=== PATIENT | male | born 1935 | race Caucasian/White ===

== ENCOUNTER 2017-06-20 08:53 | Outpatient (CLI) | payer MEDICARE ==
[2017-06-20 10:41] LABS: Bilirubin Negative (Negative); Blood, Urine Negative (Negative); Glucose, Urine (Dipstick) Negative (Negative); Ketone, Urine Negative (Negative); Nitrite Negative (Negative); Protein, Urine (Dipstick) Negative (Neg-Trace)
[2017-06-20 10:43] LABS: Bacteria/HPF None Seen HPF (None Seen); Hyaline Casts/LPF 0-3 HYALINE CAST LPF (0-3 Hyaline); RBC/HPF 0-3 HPF (0-3); Squamous Epithelial None Seen HPF (0-3); WBC/HPF 0-3 HPF (0-3)
[2017-06-20 11:04] LABS: Anion Gap 14 mmol/L (10-20); BUN (Urea Nitrogen) 16 mg/dL (8.4-25.7); Calc. Creatinine Clearance 0 mL/min (70-130); Calcium 9.3 mg/dL (7.8-10.44); Carbon Dioxide 28 mmol/L (23-31); Chloride 107 mmol/L (98-107); Estimated GFR-MDRD 83
--- NOTE | 2017-06-20 12:24 | CT ---
EXAM: ABDOMEN CT WITH AND WITHOUT CONTRAST PELVIC CT WITH AND WITHOUT CONTRAST: HISTORY: Hematuria. Leaking bladder. COMPARISON: 09/14/15. TECHNIQUE: Abdomen and pelvic CT is performed with and without IV contrast. Coronal reformatted images are sub mitted for interpretation. FINDINGS: ABDOMEN CT: Chronic change of the lung bases. Heart size is normal. No significant pericardial fluid. Descend ing thoracic aorta and abdominal aorta have a normal caliber. No periaortic fat stranding. 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 No periaortic fat stranding. Symmetric attenuation of the psoas muscles. No gastrohepatic, retrocrural, or periportal lymphadenopathy. No mesenteric mass, lymphadenopathy, free air, or free fluid. Gallbladder is unremarkable. Liver, spleen, pancreas, and adrenal glands have appropriate enhancement. Limited evaluation of the alimentary canal due to the lack of oral contrast. No evidence of bowel o bstruction. Note, the cecum appear to be in the left hemiabdomen. The ileocecal junction is normal . Normal-caliber appendix. Fecal material in a nondistended, nondilated colon. Occasional diverti culum. No diverticulitis. There are nonobstructing calcifications in the left and right renal pelvis measuring 4 mm bilaterall y. There is no evidence of hydronephrosis or perinephric fat stranding. No hydroureter, periureter al fat stranding, or ureterolithiasis. Symmetric enhancement of the kidneys. Hypodensity in the ri ght renal cortex may represent an area of focal scarring with associated cortical thinning. There i s symmetric excretion into the intrarenal collecting systems. No filling defect. Symmetric excreti on into the extrarenal collecting system, without filling defect. PELVIC CT: Mass effect upon the floor of the urinary bladder due to prostatic hypertrophic. There is contrast in the dependent portion of the urinary bladder. There are 2 punctate 2 mm calcifications in the de pendent portion of the bladder. No pelvic mass, lymphadenopathy, free air, or free fluid. There are no lytic or blastic lesions in the osseous structures. IMPRESSION: 1. Bilateral nonobstructing renal calculi. 2. Bilaterally, no evidence of obstructive uropathy. 3. Mass effect upon the floor of the urinary bladder secondary to prostatic hypertrophy. An obviou s bladder mass is not appreciated. If there is concern, consider cystoscopy. 4. Two punctate calcifications in the floor of the urinary bladder measuring approximately 2 mm. POS: DAX
[2017-06-20] MEDS ORDERED: Iopamidol 370 76% 100 ML VIAL ONE (15:44)
== END 2017-06-20 08:54 | disposition home or self-care (01) ==
LOC: CT 08:53
PROVIDERS: ATTEND Urology
DX: R31.29 Other microscopic hematuria (principal); N20.0 Calculus of kidney
CPT/HCPCS: 36415; 74178; 80048; 81001; 87086

== ENCOUNTER 2017-07-22 09:58 | Outpatient (CLI) | payer MEDICARE ==
[2017-07-22 10:54] LABS: Hematocrit 40.5 % (42.0-52.0); Mean Platelet Volume 8.1 fL (7.4-10.4); Red Blood Cell (RBC) Count 4.07 mill/uL (4.70-6.10)
[2017-07-22 10:56] LABS: Bilirubin Negative (Negative); Blood, Urine Negative (Negative); Glucose, Urine (Dipstick) Negative (Negative); Ketone, Urine Negative (Negative); Nitrite Negative (Negative); Protein, Urine (Dipstick) Negative (Neg-Trace)
[2017-07-22 11:04] LABS: Bacteria/HPF None Seen HPF (None Seen); Hyaline Casts/LPF 0-3 HYALINE CAST LPF (0-3 Hyaline); PTT 32.4 SEC (22.9-36.1); Prothrombin Time 15.7 SEC (12.0-14.7); RBC/HPF 0-3 HPF (0-3); Squamous Epithelial None Seen HPF (0-3); WBC/HPF 0-3 HPF (0-3)
[2017-07-22 12:02] LABS: Anion Gap 8 mmol/L (10-20); BUN (Urea Nitrogen) 15 mg/dL (8.4-25.7); Calc. Creatinine Clearance 0 mL/min (70-130); Calcium 9.5 mg/dL (7.8-10.44); Carbon Dioxide 32 mmol/L (23-31); Chloride 105 mmol/L (98-107); Estimated GFR-MDRD 80
== END 2017-07-22 09:59 | disposition home or self-care (01) ==
LOC: LABBT 09:58
PROVIDERS: ATTEND Urology
DX: Z01.818 Encounter for other preprocedural examination (principal)
CPT/HCPCS: 80048; 81001; 85027; 85610; 85730; 86850; 86900; 86901; 87086; 93005; 93010

== ENCOUNTER 2017-07-28 06:22 | Observation (INO) | payer MEDICARE ==
[2017-07-22 10:39] VITALS: BMI 26.6
[2017-07-28] MEDS ORDERED: Levofloxacin 500 mg/D5W 100 ml Premix Bag ONE (06:47)
[2017-07-28] MEDS ORDERED: Fentanyl 100 MCG/2 ML VIAL ONE ×2 (06:50→12:22)
[2017-07-28] MEDS ORDERED: Promethazine HCl 25 MG/ML VIAL SLOW IVP PRN ×2 (09:48→15:25)
[2017-07-28] MEDS ORDERED: Ondansetron HCl/PF 4 MG/2 ML Vial IVP PRN (09:48)
[2017-07-28] MEDS ORDERED: Ketorolac Tromethamine 30 MG/ML VIAL IVP PRN (10:34)
[2017-07-28] MEDS ORDERED: diphenhydrAMINE 25 MG CAP PO PRN (10:58)
[2017-07-28] MEDS ORDERED: Oxybutynin 5 MG TAB PO PRN (10:58)
[2017-07-28] MEDS ORDERED: HYDROcodone/Acetaminophen 5/325 mg Tablet PO PRN (10:58)
[2017-07-28] MEDS ORDERED: Mag-Al 1200 mg/1200 mg/30 ML UDCUP PO PRN (10:58)
[2017-07-28] MEDS ORDERED: Dextrose 5% in Water 1,000 ML IV PRN (10:58)
[2017-07-28] MEDS ORDERED: Hyoscyamine Sulfate SL 0.125 mg Tablet SL PRN (10:58)
[2017-07-28] MEDS ORDERED: HumaLOG 300 UNITS/3 ML VIAL SC PRN (10:58)
[2017-07-28] MEDS ORDERED: Dextrose 50% Abboject 50 ML SYRINGE SLOW IVP PRN (10:58)
[2017-07-28] MEDS ORDERED: Morphine 4 MG/ML VIAL SLOW IVP PRN ×2 (11:45)
[2017-07-28] MEDS: hydrALAZINE 20 MG/ML VIAL SLOW IVP PRN (13:50)
--- NOTE | 2017-07-28 14:35 | OP ---
DATE OF PROCEDURE: 07/28/2017 SURGEON: Urology. PREOPERATIVE DIAGNOSIS: Benign prostatic hypertrophy. POSTOPERATIVE DIAGNOSIS: Benign prostatic hypertrophy. PROCEDURE PERFORMED: Transurethral resection of the prostate. INDICATIONS FOR PROCEDURE: Mr. Herron is an 82-year-old white male who presented with BPH and low er urinary tract symptoms with urgency and urge incontinence. Cystoscopy demonstrates a ball-valving median lobe with significant obstruction and his uroflow confirms that he still has a weak stream. We discussed resection of the prostate with the possibility of improvement of his overactive bladder as well. All risks and benefits have been discussed and he has agreed to proceed forward. DESCRIPTION OF PROCEDURE: After identification of armband and verification of consent, patient was b rought back to the operating room where he underwent general anesthesia with an LMA. He was then nicholas george in dorsal lithotomy position, prepped and draped in usual sterile fashion. After appropriate annabelle eout, lubricated 22-Sudanese rigid cystoscope was introduced per urethra into the bladder. Attention w as turned to the ureteral orifice, which could not be identified as they were underneath the median l obe. The visual obturator was switched out for the bipolar resectoscope with the prostate loop. The median lobe was carefully resected down and reinspection at the bladder neck demonstrated both urete ral orifices in close proximity to the bladder neck. The bladder neck was taken down on both sides a nd the resection of the adenomatous prostate resected completely circumferentially all the way to the verumontanum. Care was taken not to pass the verumontanum to avoid sphincteric injury. The prostat e chips were then evacuated using [facility] evacuator. Meticulous hemostasis was performed with the bipo lar prostate loop. There was a small undermined of the bladder on the right bladder neck where the T Y BN had gone through the prostatic capsule was extremely mild and felt it was not significant enough to warrant any kind of further treatment. Both ureters were reinspected and found to be in their or thotopic location unharmed and did not appear to be any type of injury satisfied that all the prostat e chips had been removed. Repeat hemostasis was performed and once completed, the cystoscope was use d to guide in a guidewire into the bladder. The cystoscope was then removed leaving the guidewire in place. A 22-Sudanese three-way Hector catheter with a Councill tip was inserted over the guidewire int o the bladder with ease. The guidewire was then removed and 30 mL of sterile water placed into the b alloon. The catheter was irrigated and found to have minimal clots. The CBI was initiated and the p atient was then awakened and taken to PACU for recovery in stable condition. COMPLICATIONS: None. ESTIMATED BLOOD LOSS: Minimal. RETAINED TUBES AND DRAINS: A 22-Sudanese three-way Hector catheter. SPECIMENS: Prostate chips. DISPOSITION: The patient will be kept in the hospital under observation for CBI. We will probably s end him home with his catheter due to the minor capsulotomy and plan for a voiding trial in approxima tely a week or so.
[2017-07-28] MEDS: HYDROcodone/Acetaminophen 5/325 mg Tablet PO PRN ×2 (14:50→23:07)
[2017-07-28] MEDS ORDERED: Glycopyrrolate 0.2 MG/ML 5 ML SYRINGE ONE (16:32)
[2017-07-28] MEDS ORDERED: PROPOFOL 200 MG/20 ML VIAL ONE (16:32)
[2017-07-28] MEDS ORDERED: PHENYLEPHRINE-NS 100 MCG/ML 10 ML SYRINGE ONE (16:32)
[2017-07-28] MEDS ORDERED: Metoclopramide HCl 10 MG/2 ML VIAL ONE (16:32)
[2017-07-28] MEDS ORDERED: ePHEDrine/0.9% NaCl/PF SYRINGE 50 mg/10 ml ONE (16:32)
[2017-07-28] MEDS ORDERED: Lidocaine 1% PF 5 ML VIAL ONE (16:32)
[2017-07-28] MEDS ORDERED: Ondansetron HCl/PF 4 MG/2 ML Vial ONE (16:32)
[2017-07-28] MEDS: Docusate 100 MG CAP PO SCH (20:54)
[2017-07-28] MEDS: metFORMIN 500 MG TAB PO SCH (20:56)
[2017-07-28] MEDS ORDERED: Amlodipine 5 MG TAB PO SCH (21:00)
[2017-07-28] MEDS ORDERED: glipiZIDE 5 MG TAB PO SCH (21:00)
[2017-07-28] MEDS ORDERED: Melatonin 3 MG TAB PO SCH (21:00)
[2017-07-28] MEDS ORDERED: Atorvastatin Calcium 20 MG TAB PO SCH (21:00)
[2017-07-28 21:05] LABS: Anion Gap 10 mmol/L (10-20); BUN (Urea Nitrogen) 13 mg/dL (8.4-25.7); Calc. Creatinine Clearance 81 mL/min (70-130); Calcium 8.5 mg/dL (7.8-10.44); Carbon Dioxide 28 mmol/L (23-31); Chloride 105 mmol/L (98-107); Estimated GFR-MDRD Greater than 90; Glucose 202 mg/dL (83-110); Magnesium 1.6 mg/dL (1.6-2.6); Potassium 3.9 mmol/L (3.5-5.1); Sodium 139 mmol/L (136-145)
[2017-07-28 21:12] LABS: CKMB 1.8 ng/mL (0-6.6); Troponin I Less than 0.010 ng/mL (< 0.028)
--- NOTE | 2017-07-28 21:28 | CON ---
INITIAL INPATIENT CONSULT NOTE DATE OF CONSULTATION: 07/28/2017 TIME OF SERVICE: 1640. REQUESTING PHYSICIAN: Dr. Javan Garza. REASON FOR CONSULTATION: EKG changes, postop TURP. PRIMARY CARE PHYSICIAN: Dr. Debby Patrick. HISTORY OF PRESENT ILLNESS: Mr. Herron is a pleasant 82-year-old gentleman with history of BPH an d prostate enlargement causing a mass effect on the bladder, who is now postop day #0 today from cyst oscopy and TURP. No noted intraoperative complications, preoperative workup with EKG showed sinus bradycardia; however , on arrival to the floor postoperatively, he had underlying sinus rhythm with PVCs. Due to the EKG changes, we are consulted for evaluation. The patient denies any chest pain or shortness of breath, no nausea or vomiting, no diarrhea or constipation. No fevers or chills. No cough or sputum product ion. In talking with he and his , his states that they see Dr. Coyne regularly. On previous e valuations, he has had an irregular rhythm, which was not been concerned about, and that at their flori e blood pressure cuff, it frequently alerts them to irregular heart rate. Preoperative labs were reviewed and showed normal chemistries. No other current complaints. PAST MEDICAL HISTORY: 1. Hypertension. 2. Hyperlipidemia. 3. Diabetes mellitus type 2. 4. BPH. PAST SURGICAL HISTORY: Include; 1. TURP today. 2. Thumb amputation repair in 1953. 3. Hemorrhoidectomy in the past. HOME MEDICATIONS: 1. Amlodipine 2.5 mg p.o. daily, did not take today. 2. Aspirin 81 mg, off for the last week. 3. Proscar 5 mg p.o. at bedtime. 4. Glipizide 2.5 mg p.o. q.p.m., did not take today. 5. Lisinopril 40 mg p.o. q.a.m., did not take today. 6. Melatonin 5 mg p.o. at bedtime p.r.n. insomnia. 7. Metformin 500 mg p.o. b.i.d., did not take today. 8. Zocor 40 mg p.o. at bedtime. 9. Terazosin 5 mg p.o. at bedtime. 10. CoQ10 100 mg p.o. q.a.m. ALLERGIES: VACCINE and TETANUS TOXOID many, many years ago, has not been rechallenged. This was cristofer e time when he had his thigh amputation surgery in 1952. FAMILY HISTORY: Significant for "heart problems." His dad had an NV in his 60s. His brother had a heart attack at age 55. SOCIAL HISTORY: Negative for habits x3. He did smoke 1 pack per day for 30 years, but quit some 30 years ago. He is . His accompanies him. REVIEW OF SYSTEMS: A 10-point review of systems was performed, negative for all other systems except for stated as per HPI. PHYSICAL EXAMINATION: VITAL SIGNS: Temperature is 97.3, pulse 67, blood pressure 148/72, respiratory rate 14 and satting 9 6% on room air. GENERAL: He is awake. He is alert. He is oriented x3, appears to be in no acute distress. In talk ing with him, he does have some word finding difficulties. HEENT: Normocephalic and atraumatic. Pupils are equal and reactive bilaterally. Mucous membranes a re moist. There are no visible lesions. No thrush. NECK: Supple, with no lymphadenopathy, no JVD, no thyromegaly, no carotid upstroke. There are no br uits. LUNGS: Clear to auscultation bilaterally. There are no wheezes, no rales, no rhonchi. No prolonged expiratory phase. He has good air movement and symmetrical chest excursion. CARDIOVASCULAR: He has underlying regular rhythm with frequent ectopic beats. He has no audible mur murs. ABDOMEN: Soft. It is nontender and nondistended. No masses, no organomegaly. GENITOURINARY: Shows a 3-way Hector catheter in place with a CBI going. EXTREMITIES: Showed no cyanosis, no clubbing. Trace pedal edema. SKIN: Warm, moist and well perfused. He has no other rashes or lesions. MUSCULOSKELETAL: Shows large joints to be intact, normal to inspection. He has no inflammation, no palpable effusions. NEUROLOGIC: Cranial nerves II-XII are grossly intact. He has no focal deficits. He has 5/5 strengt h in all of his extremities. He does have some word finding difficulty, but his speech appears other hayes appropriate. LABORATORY DATA: CMP on 07/25 is normal. Creatinine 0.91, potassium 4.3, calcium of 9.5 and glucose of 133. Hemoglobin A1c was 6.5. INR was 1.2. Urinalysis negative. CBC on 07/22 showed a white co unt of 8.0, hemoglobin 13.4, hematocrit of 40.5 and platelets of 159,000. IMAGING DATA: X-ray on 06/20/2017, CT scan of the abdomen and pelvis showed bilateral nonobstructing renal stones, BPH with mass effect on the bladder. EKG shows sinus rhythm with frequent PVCs. I patton ve no older one to compare too. EKG pre-admit showed sinus bradycardia. ASSESSMENT AND PLAN: 1. Changes in EKG: From history, this sounds like this is likely the patient's baseline. We will follow his EKG with repeat in the morning. We will get serial cardiac biomarkers. I will check chem istries now. The patient remains asymptomatic overnight and has unchanged EKG in the morning. We wi ll likely sign off. If there is any abnormality or question, we will ask Dr. Coyne to evaluate an d comment. 2. Hypertension. Continue home medications. 3. Hyperlipidemia, on Zocor, continue. 4. Diabetes mellitus type 2. Resume home medications. We will use insulin sliding scale. Seems to have reasonably good control with a hemoglobin A1c of 6.5. 5. BPH, status post TURP: Per Dr. Garza. Thank you very much for this consult. We will follow along with you.
[2017-07-29 06:21] LABS: #Eosinphils 0.6 thou/uL (0.0-0.7); #Lymphocytes 1.4 thou/uL (1.20-3.40); #Monocytes 0.8 thou/uL (0.11-0.59); #Neutrophils 4.7 thou/uL (1.40-6.50); %Basophils 0.4 % (0.0-1.0); %Eosinophils 8.1 % (0.0-10.0); %Lymphocytes 18.8 % (21.0-51.0); %Monocytes 10.2 % (0.0-10.0); %Neutrophils 62.6 % (42.0-75.0); Hemoglobin 12.1 g/dL (14.0-18.0); Mean Corpuscular HGB CONC 31.9 g/dL (32.0-36.0); Mean Corpuscular Hemoglobin 31.6 pg (27.0-31.0); Mean Corpuscular Volume 98.9 fl (80.0-94.0); Mean Platelet Volume 8.2 fL (7.4-10.4); Platelet Count 159 thou/uL (130-400); RBC Distribution Width 12.6 % (11.5-14.5); Red Blood Cell (RBC) Count 3.84 mill/uL (4.70-6.10); White Blood Cell (WBC) Count 7.6 thou/uL (4.8-10.8)
[2017-07-29 06:41] LABS: Troponin I Less than 0.010 ng/mL (< 0.028)
[2017-07-29 06:43] LABS: Anion Gap 9 mmol/L (10-20); BUN (Urea Nitrogen) 12 mg/dL (8.4-25.7); Calc. Creatinine Clearance 80 mL/min (70-130); Calcium 8.9 mg/dL (7.8-10.44); Carbon Dioxide 29 mmol/L (23-31); Chloride 108 mmol/L (98-107); Estimated GFR-MDRD 90; Glucose 89 mg/dL (83-110); Magnesium 1.9 mg/dL (1.6-2.6); Potassium 3.6 mmol/L (3.5-5.1); Sodium 142 mmol/L (136-145)
[2017-07-29] MEDS: Docusate 100 MG CAP PO SCH (08:00)
[2017-07-29] MEDS: metFORMIN 500 MG TAB PO SCH (08:00)
[2017-07-29] MEDS ORDERED: Lisinopril 20 MG TAB PO SCH (09:00)
[2017-07-29] MEDS ORDERED: Ubidecarenone 50 MG CAP PO SCH (09:00)
[2017-07-29] MEDS: hydrALAZINE 20 MG/ML VIAL SLOW IVP PRN (12:02)
[2017-07-29 12:18] VITALS: TEMP 98.2
--- NOTE | 2017-07-29 12:50 | PDOC.PN ---
- Subjective Encounter Start Date: 07/29/17 Encounter Start Time: 10:50 Pt did well overnight, BMP on arrival to [facility] normal, trop normal. No CP, no SOB, no n/V/d/C. Pt going home today with catheter in. No F/C. Deneis palpitations 10 point ROS performed and neg for all systems except as above - Objective MAR Reviewed: Yes Vital Signs & Weight: Vital Signs (12 hours) Temp Pulse Resp BP BP Pulse Ox 07/29/17 12:02 67 182/81 H 07/29/17 12:00 98.2 F 69 18 179/77 H 99 07/29/17 08:00 98.0 F 66 18 144/68 H 07/29/17 07:00 98.0 F 66 18 132/67 99 07/29/17 05:07 98.0 F 68 18 138/73 97 Weight Weight 180 lb I&O: 07/28/17 07/29/17 07/30/17 06:59 06:59 06:59 Intake Total 2 Output Total 500 1450 Balance -498 -1450 Result Diagrams: 07/29/17 05:54 07/29/17 05:54 Additional Labs: Accuchecks 07/29/17 07/29/17 07/28/17 12:11 05:43 20:13 POC Glucose 96 80 175 H 07/28/17 18:34 POC Glucose 180 H EKG Reviewed by me: Yes Phys Exam - Physical Examination Constitutional: NAD HEENT: PERRLA, moist MMs, sclera anicteric, oral pharynx no lesions Neck: no nodes, no JVD, supple, full ROM Respiratory: no wheezing, no rales, no rhonchi, clear to auscultation bilateral Cardiovascular: RRR, no significant murmur, no rub occasional APCs every 10-11 beats Gastrointestinal: soft, non-tender, no distention, positive bowel sounds Musculoskeletal: no edema, pulses present Neurological: non-focal, normal sensation, moves all 4 limbs Lymphatic: no nodes Psychiatric: normal affect, A&O x 3 Skin: no rash, normal turgor, cap refill <2 seconds Dx/Plan (1) Atrial contractions, premature Code(s): 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 underlying NSR was stable. OK from medical standpoint to discharge (2) DM2 (diabetes mellitus, type 2) Status: Chronic Qualifiers: Diabetes mellitus complication status: without complication Diabetes mellitus custodial insulin use: without intermodal dispatcher use Qualified Code(s): E11.9 - Type 2 diabetes mellitus without complications (3) HTN (hypertension) Code(s): I10 - ESSENTIAL (PRIMARY) HYPERTENSION Status: Chronic Qualifiers: Hypertension type: essential hypertension Qualified Code(s): I10 - Essential (primary) hypertension (4) BPH w urinary obs/LUTS Code(s): N40.1 - BENIGN PROSTATIC HYPERPLASIA WITH LOWER URINARY TRACT SYMP; N13.8 - OTHER OBSTRUCTIVE AND REFLUX UROPATHY Status: Chronic - Plan cont current plan of care * . will sign off in anticipation of D/c. thank you for allowing us to particiapte in the care of your patient. Please for an additonal needs
[2017-07-29 12:54] VITALS: BP 146/81
[2017-07-29 13:17] LABS: CKMB 4.8 ng/mL (0-6.6); Troponin I Less than 0.010 ng/mL (< 0.028)
--- NOTE | 2017-07-29 15:45 | PRG ---
DATE OF SERVICE: 07/29/2017 SUBJECTIVE: The patient states he is feeling much better this morning. His mind is more clearly. Ryan ford is not having any pain. His catheter has been draining well. He denies any chest pain or shortnes s of breath. Medicine has seen him for his PVCs and cleared him and stated that there was no signifi cant concern. Patient's blood pressure was elevated, but has now come back down. He denies any ches t pain, shortness of breath, dizziness, headaches or changes in his vision. PHYSICAL EXAMINATION: VITAL SIGNS: Temperature 98.2, pulse 67, blood pressure 146/81, saturations 99% on room air, respira tions 18. GENERAL: Communicative, alert, no apparent distress. CARDIOVASCULAR: Irregular rhythm with normal rate. ABDOMEN: Soft, nontender, nondistended, positive bowel sounds. GENITOURINARY: Hector catheter in place with clear yellow urine with CBI off. EXTREMITIES: No clubbing, cyanosis or edema. SCDs in place. LABORATORY DATA: On laboratory evaluation, a full set of labs in the [facility] system, which I have zayda beebewed. Of note, the patient's hemoglobin is 12.1 with white count of 7.6, creatinine is 0.82. Tro ponins are negative. ASSESSMENT AND PLAN: An 82-year-old white male with a history of benign prostatic hypertrophy and si gnificant urinary symptoms status post transurethral resection of the prostate, postop day #1. He a small bladder neck injury with extracapsular penetration and therefore we have elected to keep the ca theter in. I told him we will leave the catheter in for approximately 5-6 days and I will have him c ome back for a nursing visit and voiding trial next week, which he can do with Dr. Salcido. I will se e him the following week for a postop check with me. We went over his discharge instructions singh cain catheter care. Medicine is okay with him being discharged home so he will be sent home with his catheter in place.
--- NOTE | 2017-07-29 16:44 | DIS ---
DATE OF ADMISSION: 07/28/2017 DATE OF DISCHARGE: 07/29/2017 ADMITTING DIAGNOSES: Benign prostatic hypertrophy with lower urinary tract symptoms. DISCHARGE DIAGNOSES: Benign prostatic hypertrophy with lower urinary tract symptoms. PROCEDURE PERFORMED WHILE INPATIENT: Transurethral resection of the prostate. CONSULTATIONS: Obtained is from [facility]. History is found in the scanned portion of the [employer] system. HOSPITAL COURSE: After his TURP, please see operative note for details. The patient was kept in the hospital for observation with CBI overnight. His urine remained extremely clear. He had some PVCs and nausea on postoperative day 0. Medicine was consulted, who saw him and stated that after workup, he did not have any significant concerns. The PVCs had been present on prior EKG and his troponins were negative. They cleared him for discharge due to a bladder neck injury, which occurred intraoper atively. I recommended keeping the catheter in place and therefore, the patient is being discharged home with the catheter. He has no hematuria and otherwise feels fine. DISPOSITION: Discharge to home with Hector catheter. DISCHARGE CONDITION: Good. DISCHARGE MEDICATIONS: Include stopping his terazosin and his finasteride. He will hold his aspirin and resume all his home medications. Remainder of the medication can be reviewed in the med rec. DISCHARGE INSTRUCTION: Has been gone over with the patient. FOLLOWUP: Followup will be next week for a void trial with the nurse and the following week with me in the office.
--- NOTE | 2017-08-01 12:15 | EKG ---
Test Reason : Blood Pressure : / mmHG Vent. Rate : 094 BPM Atrial Rate : 094 BPM P-R Int : 156 ms QRS Dur : 076 ms QT Int : 378 ms P-R-T Axes : 067 -16 071 degrees QTc Int : 472 ms Sinus rhythm with Premature supraventricular complexes Nonspecific T wave abnormality Prolonged QT Abnormal ECG Confirmed by KAREEM MCKEON ([id number]) on 08/01/2017 12:15:29 PM Referred By: RICKY Confirmed By:KAREEM MCKEON
== END 2017-07-29 14:39 | disposition home or self-care (01) ==
LOC: SDC 06:22 → SURG A 10:58
PROVIDERS: ADMIT Urology; ATTEND Urology
PROC: 0VT08ZZ Resection of Prostate, Via Natural or Artificial Opening Endoscopic (ICD-10-PCS; principal; 2017-07-28)
DX: N40.1 Benign prostatic hyperplasia with lower urinary tract symptoms (principal); N39.41 Urge incontinence; I49.1 Atrial premature depolarization; E11.9 Type 2 diabetes mellitus without complications; I10 Essential (primary) hypertension; E78.5 Hyperlipidemia, unspecified; Z87.891 Personal history of nicotine dependence; Z88.7 Allergy status to serum and vaccine; Z79.82 Long term (current) use of aspirin; Z79.84 Long term (current) use of oral hypoglycemic drugs; Z79.899 Other long term (current) drug therapy
CPT/HCPCS: 52601; 80048 ×2; 82553 ×3; 82962 ×2; 83735 ×2; 84484 ×3; 85025; 88305; 93005; 96374; 96375; 96376; G0378; 36415; 36416; 93010; J0131; J0360; J1956; J2001; J2405; J2550; J2704; J2765; J3010